=== PATIENT | male | born 1980 ===

== ENCOUNTER 2022-01-17 09:26 | Emergency (ER) | payer OTHER ==
[2022-01-17] MEDS ORDERED: LIDOCAINE (1%) 10 MG/1 ML VIAL 20 ML MDV INFILTRATI ONE (10:25)
[2022-01-17] MEDS ORDERED: oxyCODONE /ACETAMINOPHEN 5-325MG TAB PO ONE (10:25)
[2022-01-17] MEDS ORDERED: TETANUS,DIPH,PERTUSS(ACELL) VACCINE 0.5 ML SYRINGE IM ONE (10:25)
[2022-01-17] MEDS ORDERED: KETOROLAC 10 MG TAB PO ONE (10:25)
--- NOTE | 2022-01-17 11:08 | Emergency Department Report ---
<FIDELPEGGYJOSE Ceron - Last Filed: 01/17/22 11:04> - General Chief Complaint: Wound/Laceration Stated Complaint: LT HAND LACERATION Time Seen by Provider: 01/17/22 10:30 Source: patient, family Mode of arrival: Ambulatory Limitations: No Limitations - History of Present Illness Initial Comments: 41-year-old male with no past medical history presents to the emergency department for evaluation laceration of left hand. He states that he was a ttempting to install a door and cut his hand accidentally. He presents would laceration to palm of left hand near thumb area. He is unsure of his tetanus status. -: Sudden, This morning Extremity Location: Left: Hand Place: work Patient Tetanus UTD: No Context: accidental Associated Symptoms: pain Treatments Prior to Arrival: bandage - Related Data Allergies Allergy/AdvReac Type Severity Reaction Status Date / Time No Known Allergies Allergy Unverified 01/17/22 09:36 ED Review of Systems Comment: All other systems reviewed and negative Constitutional: denies: chills, fever, malaise, weakness Eyes: denies: vision change Respiratory: denies: shortness of breath Cardiovascular: denies: chest pain, palpitations Gastrointestinal: denies: abdominal pain, nausea, vomiting ( ) Neurological: denies: headache ED Past Medical Hx - Past Medical History Previous Medical History?: No - Surgical History Past Surgical History?: No - Social History Smoking Status: Never Smoker ED Physical Exam - General Limitations: No Limitations General appearance: alert, in no apparent distress - Head Head exam: Present: atraumatic, normocephalic - Eye Eye exam: Present: normal appearance. Absent: conjunctival injection - Neck Neck exam: Present: normal inspection - Respiratory Respiratory exam: Absent: respiratory distress - Cardiovascular Cardiovascular Exam: Present: regular rate - GI/Abdominal GI/Abdominal exam: Absent: distended - Expanded Upper Extremity Exam Left Hand Wrist exam: Present: tenderness, swelling, laceration Hand L/R Front: 1 - Positive: laceration Neuro motor exam: Present: thumb opposition intact, thumb IP flexion intact, thumb adduction intact, fingers 2-5 abduction intact Vascular: Present: normal capillary refill, radial pulse. Absent: vascular compromise, Pallo, pulse deficit radial art - Back Exam Back exam: Present: normal inspection - Neurological Exam Neurological exam: Present: alert, oriented X3 - Psychiatric Psychiatric exam: Present: normal affect, normal mood - Skin Skin exam: Present: warm, dry, normal color - Laceration /Wound Repair Left Hand Wound Location: upper extremity (Palm of left hand near base of thumb) Wound Length (cm): 3 Wound's Depth, Shape: superficial, linear Wound Explored: clean Irrigated w/ Saline (ccs): 80 Betadine Prep?: No Anesthesia: 1% Lidocaine Volume Anesthetic (ccs): 10 Wound Repaired With: sutures Suture Size/Type: 3:0 (Vicryl) Number of Sutures: 7 Layer Closure?: Yes Deep Layer Suture Size/Type: 3:0 (Vicryl) Number Deep Layer Sutures: 2 Sterile Dressing Applied?: Yes Progress: Patient tolerated well. ED Medical Decision Making - Medical Decision Making 41-year-old male with no past medical history presents to the emergency department for evaluation laceration of left hand. He states that he was attempting to install a door and cut his hand accidentally. He presents would laceration to palm of left hand near thumb area. He is unsure of his tetanus s tatus. Laceration repaired per my procedure note. No signs of tendon injury. Tdap updated. Patient discharged home and advised to return immediately or to his local emergency department for any signs of infection as discussed. He verbalizes understanding of and agreement with plan of care. ED Disposition Clinical Impression: Laceration of left hand Disposition: 01 HOME / SELF CARE / HOMELESS Is pt being admited?: No Does the pt Need Aspirin: No Condition: Stable Instructions: Laceration Care, Adult, [id number], Sutured Wound Care, [id number] Additional Instructions: Monitor for signs of infection, and if any noted follow-up immediately in the emergency department. Referrals: BRENDA SHERIDAN MD [Referring] - 3-5 Days Forms: Work/School Release Form(ED) Time of Disposition: 11:25 <MAEVE KRISHNAMURTHY - Last Filed: 02/07/22 05:16> ED Review of Systems ROS: Stated complaint: LT HAND LACERATION Other details as noted in HPI ED Course Vital Signs 01/17/22 01/17/22 09:29 11:48 Temperature 98.3 F 96.3 F L Pulse Rate 85 62 Respiratory 18 16 Rate Blood Pressure 154/85 Blood Pressure 136/71 [Left] O2 Sat by Pulse 99 100 Oximetry ED Medical Decision Making - Medical Decision Making Patient was managed independently by the mid level below , I was available for consult but i wasn't directly involved in the care of this patient Critical care attestation.: If time is entered above; I have spent that time in minutes in the direct care of this critically ill patient, excluding procedure time. ED Disposition Is pt being admited?: No Does the pt Need Aspirin: No
[2022-01-17 11:49] VITALS: BP 136/71
== END 2022-01-17 11:50 | disposition home or self-care (01) ==
LOC: ED 09:26
DX: S61.412A Laceration without foreign body of left hand, initial encounter (principal); X58.XXXA Exposure to other specified factors, initial encounter; Y93.89 Activity, other specified; Y92.89 Other specified places as the place of occurrence of the external cause; Y99.8 Other external cause status
CPT/HCPCS: 90471; 90715; 99282